=== PATIENT | female | born 1975 | race Caucasian/White ===

== ENCOUNTER 2020-07-07 12:30 | Outpatient (CLI) | payer OTHER ==
--- NOTE | 2020-07-07 13:54 | MMO ---
Bilateral MAMMO Bilat Screen [facility]. CLINICAL HISTORY: Patient is 45 years old and is seen for screening. The patient has no family history of breast cancer. The patient has no personal history of cancer. VIEWS: The views performed were: bilateral craniocaudal with tomosynthesis and bilateral mediolateral oblique with tomosynthesis. FILMS COMPARED: The present examination has been compared to prior imaging studies performed at [facility] on 03/06/2011, 05/22/2015 and 06/10/2016. This study has been interpreted with the assistance of computer-aided detection. MAMMOGRAM FINDINGS: The breasts are heterogeneously dense, which could obscure a lesion on mammography. Asymmetric increasing density upper outer left breast. Best seen on tomosynthesis. In the right breast, there are no suspicious masses, calcifications or areas of architectural distortion. IMPRESSION: FINDING IN THE LEFT BREAST REQUIRES ADDITIONAL EVALUATION. SPOT COMPRESSION IS RECOMMENDED. THE RESULTS OF THIS EXAM WERE SENT TO THE PATIENT. ACR BI-RADS Category 0 - Incomplete: Need additional imaging evaluation. [facility] will notify the patient of the need for additional imaging services. MAMMOGRAPHY NOTE: 1. A negative mammogram report should not delay a biopsy if a dominant of clinically suspicious mass is present. 2. Approximately 10% to 15% of breast cancers are not detected by mammography. 3. Adenosis and dense breasts may obscure an underlying neoplasm. Reported by: CÉSAR KAUR MD Electonically Signed: [id number]
== END 2020-07-07 12:31 | disposition home or self-care (01) ==
LOC: BICMAMMO 12:30
PROVIDERS: ATTEND Obstetrics & Gynecology
DX: Z12.31 Encounter for screening mammogram for malignant neoplasm of breast (principal)
CPT/HCPCS: 77063; 77067

== ENCOUNTER 2020-07-11 12:42 | Outpatient (CLI) | payer OTHER ==
--- NOTE | 2020-07-11 13:36 | MMO ---
Left Breast MAMMO Unilat Diag [facility]. CLINICAL HISTORY: Patient is 45 years old and is seen for additional evaluation requested at current screening. The patient has no family history of breast cancer. The patient has no personal history of cancer. VIEWS: The views performed were: left craniocaudal spot compression with tomosynthesis; left mediolateral oblique spot compression with tomosynthesis; and left mediolateral with tomosynthesis. FILMS COMPARED: The present examination has been compared to prior imaging studies performed at [facility] on 05/22/2015, 06/10/2016, 07/07/2020 and 07/11/2020. This study has been interpreted with the assistance of computer-aided detection. MAMMOGRAM FINDINGS: The breast is heterogeneously dense, which could obscure a lesion on mammography. Additional views were performed. Focal density in the left upper outer breast persists. No corresponding abnormality is noted on US. IMPRESSION: FINDING IN THE LEFT BREAST IS SUSPICIOUS. A STEREOTACTIC BREAST BIOPSY IS RECOMMENDED. THE RESULTS OF THIS EXAM WERE SENT TO THE PATIENT. ACR BI-RADS Category 4 - Suspicious abnormality - biopsy should be considered This exam was interpreted in consultation with Dr Chalo Plata who concurs. MAMMOGRAPHY NOTE: 1. A negative mammogram report should not delay a biopsy if a dominant of clinically suspicious mass is present. 2. Approximately 10% to 15% of breast cancers are not detected by mammography. 3. Adenosis and dense breasts may obscure an underlying neoplasm. Reported by: KATHY PHILLIPS MD Electonically Signed: [id number]
--- NOTE | 2020-07-11 13:53 | ULT ---
LIMITED LEFT BREAST ULTRASOUND: 07/11/20 HISTORY: Abnormal mammogram. FINDINGS: Correlation is made to mammograms of 07/07/20 and today. Sonographic evaluation of the left upper outer breast demonstrates no sonographic abnormality to ashley espond to the mammographic finding. IMPRESSION: BI-RADS 4: Suspicious Abnormality - Stereotactic Biopsy of the focal density noted on the mammogram S hould Be Considered Usually requires biopsy Discussed in person with the patient at 1:[address] Quach's nurse, Nica Holcomb over the telephone at 1:31 p.m. POS: OFF
== END 2020-07-11 12:43 | disposition home or self-care (01) ==
LOC: BICMAMMO 12:42
PROVIDERS: ATTEND Obstetrics & Gynecology
DX: R92.2 Inconclusive mammogram (principal)
CPT/HCPCS: G0279

== ENCOUNTER → 2020-07-28 | Day surgery (SDC) | payer OTHER ==
--- NOTE | 2020-07-28 09:21 | MMO ---
EXAM: MAMMO Brst Bx Stereo Left breast biopsy marker clip placement PROVIDED CLINICAL HISTORY: Asymmetry upper outer left breast. Biopsy recommended. COMPARISON: Mammogram on 07/07/2020 and additional views left breast on 07/11/2020 TECHNIQUE: The procedure including the risks and complications were explained to the patient, and informed conse nt was obtained. The patient was placed on the stereotactic guided breast biopsy table in the prone position. The asymmetry in the upper-outer left breast was localized in a lateral medial projection. The area was meticulously prepped in usual fashion. Skin and subcutaneous tissues were infiltrated with buffered 1% lidocaine for local anesthesia. A small skin incision was made. A 10-gauge stereotactic guided breast biopsy needle was advanced followed by stereotactic imaging. Th e needle was then further advanced. A total of 6 core needle biopsy specimens were obtained. The biopsy marker clip was then deployed at site of biopsy. Needle was removed, and hemostasis was achieved with direct pressure. Patient tolerated the procedure well and without immediate complication. IMPRESSION: 1. Technically successful stereotactic guided biopsy of asymmetry in the upper outer left breast. 2. Technically successful biopsy marker clip placement at site of biopsy upper outer left breast.
--- NOTE | 2020-07-28 09:56 | MMO ---
EXAM: MAMMO Diag Post Proc Ltd Lt PROVIDED CLINICAL HISTORY: Asymmetry upper outer left breast. Patient is post started guided left breast biopsy and biopsy marke r clip placement. COMPARISON: 07/07/2020 FINDINGS: Asymmetry in the upper outer left breast is visualized. There is a large amount of gas density seen o verlying the asymmetry on the MLO projection and more posteriorly on the CC projection but less well seen. Biopsy marker clip is seen just inferior to site of asymmetry. Biopsy marker clip is not s een on CC projection. IMPRESSION: Biopsy marker clip seen at site of biopsy upper left breast.
== END ==
LOC: MAMMO 06:49
PROVIDERS: ATTEND Obstetrics & Gynecology
PROC: 0H9U3ZX Drainage of Left Breast, Percutaneous Approach, Diagnostic (ICD-10-PCS; principal; 2020-07-28)
DX: N64.89 Other specified disorders of breast (principal)
CPT/HCPCS: 19081; 88305

== ENCOUNTER 2023-03-31 13:44 | Outpatient (CLI) | payer BC | END 2023-03-31 13:45 | disposition home or self-care (01) | LOC: BICMAMMO 13:44 | PROVIDERS: ATTEND Obstetrics & Gynecology | DX: R92.8 Other abnormal and inconclusive findings on diagnostic imaging of breast (principal); Z13.820 Encounter for screening for osteoporosis; M85.89 Other specified disorders of bone density and structure, multiple sites | CPT/HCPCS: 77066; 77080; G0279 ==

== ENCOUNTER 2024-06-14 08:41 | Outpatient (CLI) | payer BC | END 2024-06-14 08:42 | disposition home or self-care (01) | LOC: SCSRAD 08:41 | PROVIDERS: ATTEND Nurse Practitioner Family | DX: S69.91XA Unspecified injury of right wrist, hand and finger(s), initial encounter (principal) ==

== ENCOUNTER 2024-06-30 13:05 | Outpatient (CLI) | payer BC | END 2024-06-30 13:06 | disposition home or self-care (01) | LOC: BICMAMMO 13:05 | PROVIDERS: ATTEND Obstetrics & Gynecology | DX: Z12.31 Encounter for screening mammogram for malignant neoplasm of breast (principal); Z91.89 Other specified personal risk factors, not elsewhere classified | CPT/HCPCS: 77063; 77067 ==

== ENCOUNTER 2025-07-04 08:18 | Outpatient (CLI) | payer BC | END 2025-07-04 08:19 | disposition home or self-care (01) | LOC: BICMAMMO 08:18 | PROVIDERS: ATTEND Obstetrics & Gynecology | DX: Z12.31 Encounter for screening mammogram for malignant neoplasm of breast (principal); Z13.820 Encounter for screening for osteoporosis; M85.89 Other specified disorders of bone density and structure, multiple sites; Z91.89 Other specified personal risk factors, not elsewhere classified | CPT/HCPCS: 77063; 77067; 77080 ==